=== PATIENT | female | born 1970 | race Hispanic/Latino ===

== ENCOUNTER → 2019-01-23 | Outpatient (CLI) | payer OTHER ==
--- NOTE | 2019-01-23 13:34 | Diagnostic Imaging Report ---
Radiographs of the right knee 3 views HISTORY: Pain COMPARISON: None available. FINDINGS: Bones: No acute displaced fracture. Osseous alignment is within normal limits. Joints: Scattered degenerative change. No osseous erosion. Soft tissues: The soft tissues appear unremarkable. IMPRESSION: Scattered degenerative change. No osseous erosion. Signed by: Dr. Karthik Ramirez M.D. on 01/23/2019 1:31 PM
== END ==
LOC: RAD 10:31
PROVIDERS: ATTEND Internal Medicine
DX: M25.561 Pain in right knee (principal); R10.32 Left lower quadrant pain

== ENCOUNTER → 2019-01-28 | Outpatient (CLI) | payer OTHER ==
--- NOTE | 2019-01-28 09:39 | Diagnostic Imaging Report ---
EXAM: US ABDOMEN COMPLETE DATE: 01/28/2019 7:55 AM INDICATION: Abdominal pain COMPARISON: None TECHNIQUE: Transverse and longitudinal zabala scale and color doppler sonographic images of the upper abdomen were obtained. FINDINGS: There is no evidence of fluid or masses seen in the area of clinical concern in the right lower quadrant. LIVER 12.1 cm in the right midclavicular line. Normal echogenicity of the liver with normal contour, no masses. SPLEEN 7.3 cm in maximum diameter. Normal echogenicity, no masses. GALLBLADDER No gallbladder wall thickening (0.2 cm), distension, stone, or pericholecystic fluid. Negative reported sonographic Dwyer's sign. BILE DUCTS No intra nor extra-hepatic biliary dilation. Common bile duct measures 0.4cm PANCREAS: Visualized portions are normal. RIGHT KIDNEY: 11.0 cm Echogenicity: Normal Collecting System: No hydronephrosis Stones: None Cyst/Mass: None LEFT KIDNEY: 11.0 cm Echogenicity: Normal Collecting System: No hydronephrosis Stones: None Cyst/Mass: None VESSELS: Aorta: Visualized portions are within normal size limits Inferior Vena Cava: Visualized portions are normal Main Portal Vein: 1.1 cm, normal size with hepatopetal flow. FREE FLUID: None IMPRESSION: Unremarkable abdominal ultrasound. Signed by: Suzanne Espino MD on 01/28/2019 9:35 AM
--- NOTE | 2019-01-28 09:41 | Diagnostic Imaging Report ---
Exam: Pelvic ultrasound. History: Left lower quadrant abdominal pain Comparison: None Findings: Transabdominal sonographic evaluation of the pelvis was performed. Status post hysterectomy and left salpingo-oophorectomy. The right ovary is visualized and measures 3.8 x 1.7 x 1.8 cm with internal follicles. No free fluid or mass lesions identified. Impression: Status post hysterectomy and left apical nephrectomy. Unremarkable appearance of right ovary. Signed by: Suzanne Espino MD on 01/28/2019 9:37 AM
== END ==
LOC: US 07:34
PROVIDERS: ATTEND Internal Medicine
DX: M25.561 Pain in right knee (principal); R10.32 Left lower quadrant pain
CPT/HCPCS: 76700; 76856

== ENCOUNTER → 2019-02-27 | Outpatient (CLI) | payer OTHER ==
--- NOTE | 2019-02-27 11:55 | Diagnostic Imaging Report ---
Chest, 2 views, 02/27/2019. History: Routine physical. Comparison: None available. Findings: The cardiomediastinal silhouette and pulmonary vasculature are within normal limits. The lungs are clear without evidence of consolidation or pleural effusion. There are no acute osseous or soft tissue abnormalities. Impression: No acute cardiopulmonary abnormality. Signed by: Faizan Meneses on 02/27/2019 11:52 AM
--- NOTE | 2019-03-20 09:13 | Diagnostic Imaging Report ---
#[id number] - [id number] #BILATERAL DIGITAL SCREENING MAMMOGRAM WITH CAD: 02/27/2019 CLINICAL: Routine screening. No prior exams were available for comparison. Current study contains 4 films. There are scattered fibroglandular elements in both breasts. Current study was also evaluated with a Computer Aided Detection (CAD) system. Benign appearing calcifications are noted bilaterally. No significant masses, calcifications, or other findings are seen in either breast. IMPRESSION: BENIGN Previous films are not available, we will issue an addendum when films are reviewed. There is no mammographic evidence of malignancy. A 1 year screening mammogram is recommended. The patient will be notified by letter of the results. LEON GRAHAM M.D. ct/penrad:03/19/2019 10:21:52 Financial Systems Administrator: Sherry OLIVAS)(M), [facility] letter sent: Normal Exam Mammogram BI-RADS: 2 Benign
== END ==
LOC: RAD 09:54
PROVIDERS: ATTEND Internal Medicine
DX: Z00.00 Encounter for general adult medical examination without abnormal findings (principal); Z12.31 Encounter for screening mammogram for malignant neoplasm of breast
CPT/HCPCS: 71046; 77067